=== PATIENT | female | born 1985 | race Hispanic/Latino ===

== ENCOUNTER 2020-12-03 11:56 | Emergency (ER) | payer SELFPAY ==
[~2020-12-03] VITALS: Ht 154.9 cm; Wt 81.0 kg
[2020-12-03 12:14] VITALS: BP 135/75
[2020-12-03 12:35] LABS: URINE BILIRUBIN - DIPSTICK NEGATIVE (NEGATIVE); URINE BLOOD DIPSTICK NEGATIVE (NEGATIVE); URINE CLARITY CLEAR; URINE COLOR YELLOW; URINE GLUCOSE - DIPSTICK NEGATIVE (NEGATIVE); URINE KETONE 15 mg/dL (NEGATIVE); URINE LEUK ESTERASE NEGATIVE (Negative); URINE NITRITE - DIPSTICK NEGATIVE (Negative); URINE PROTEIN - DIPSTICK TRACE mg/dL (NEG-TRACE); URINE SPECIFIC GRAVITY 1.025; URINE UROBILINOGEN - DIPSTICK 0.2 E.U./dL (0.2)
== END 2020-12-03 13:13 | disposition left against medical advice (07) | DRG 605 ==
LOC: ED 11:56
DX: S20.312A Abrasion of left front wall of thorax, initial encounter (principal); H92.02 Otalgia, left ear; R51.9 Headache, unspecified; M54.6 Pain in thoracic spine; V49.40XA Driver injured in collision with unspecified motor vehicles in traffic accident, initial encounter; W22.11XA Striking against or struck by driver side automobile airbag, initial encounter; Z91.19 Patient's noncompliance with other medical treatment and regimen